=== PATIENT | male | born 1995 | race Caucasian/White ===

== ENCOUNTER 2017-04-27 15:09 | Emergency (ER) | payer OTHER ==
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
[2017-04-27 15:20] VITALS: RESP 18; TEMP 98.4
[2017-04-27 17:09] VITALS: BP 120/76; PULSE 83; O2SAT 96
== END 2017-04-27 17:12 | disposition home or self-care (01) ==
DX: S09.90XA Unspecified injury of head, initial encounter (principal); S30.811A Abrasion of abdominal wall, initial encounter; V23.4XXA Motorcycle driver injured in collision with car, pick-up truck or van in traffic accident, initial encounter; Y92.410 Unspecified street and highway as the place of occurrence of the external cause; Y99.8 Other external cause status; Y93.89 Activity, other specified